=== PATIENT | female | born 1985 ===

== ENCOUNTER 2017-03-20 20:29 | Observation (INO) | payer MEDICAID ==
[2017-03-20 20:38] VITALS: RESP 16; TEMP 98.6; O2SAT 100
--- NOTE | 2017-03-20 21:35 | ED PDOC ---
HPI: Abdomen Time Seen by Provider: 03/20/17 21:34 Chief Complaint (Nursing): Abdominal Pain Chief Complaint (Provider): rlq abd pain History Per: Patient (31 y/o female here with right lower quadrant pain that began suddenly last night. Notes nausea. Denies any vomiting/fevers. Ate soup today. Took motrin without relief. Has h/o ovarian cysts.) Past Medical History Reviewed: Historical Data, Nursing Documentation, Vital Signs Vital Signs: Last Vital Signs Temp 98.6 F 03/20/17 20:36 Pulse 78 03/20/17 20:36 Resp 16 03/20/17 20:36 BP 101/72 03/20/17 20:36 Pulse Ox 100 03/21/17 03:57 - Family History Family History: States: No Known Family Hx - Home Medications Home Medications: Ambulatory Orders Medication Instructions Recorded Naproxen [Naprosyn Tab] 375 mg PO Q8 PRN #21 tab 03/21/17 - Allergies Allergies/Adverse Reactions: Allergies Allergy/AdvReac Type Severity Reaction Status Date / Time No Known Allergies Allergy Verified 03/20/17 20:36 Review of Systems ROS Statement: Except As Marked, All Systems Reviewed And Found Negative Gastrointestinal: Positive for: Nausea, Abdominal Pain Physical Exam - Reviewed Nursing Documentation Reviewed: Yes Vital Signs Reviewed: Yes - Physical Exam Appears: Positive for: Well, Non-toxic, No Acute Distress Head Exam: Positive for: ATRAUMATIC, NORMAL INSPECTION, NORMOCEPHALIC Skin: Positive for: Normal Color, Warm, DRY Eye Exam: Positive for: EOMI, Normal appearance, PERRL ENT: Positive for: Normal ENT Inspection Neck: Positive for: Normal, Painless ROM Cardiovascular/Chest: Positive for: Regular Rate, Rhythm Respiratory: Positive for: CNT, Normal Breath Sounds Gastrointestinal/Abdominal: Positive for: Normal Exam, Bowel Sounds, Soft, Tenderness (rlq tenderness) Back: Positive for: Normal Inspection Extremity: Positive for: Normal ROM Neurologic/Psych: Positive for: Alert, Oriented - Laboratory Results Result Diagrams: 03/20/17 21:49 03/20/17 22:30 - ECG O2 Sat by Pulse Oximetry: 100 ED OBSERVATION Date of observation admission: 03/20/17 Time of observation admission: 21:50 - Observation admission statement Patient is being placed in observation because:: EVALUATION OF ABDOMINAL PAIN - Goals of Observation Goals of observation are:: MANAGE PAIN/EVALUATE CAUSE OF ABDOMINAL PAIN AND START TREATMENT - Progress Note Progress Note: 03/21/17 02:40 PATIENT HAD US PELVIC: RIGHT OVARIAN CYST APPROX 4CM WITH FLOW NOTED PATIENT HAS MODERATE PAIN IN RIGHT LOWER QUADRANT THAT IS NEW, WILL CT ABDOMEN/PELVIS TO EVALUATE FOR APPENDICITIS. CT abd/pelvis: right ovarian cyst 03/21/17 03:56 Disposition - Clinical Impression Clinical Impression: Abdominal pain in female, Ovarian cyst - Patient ED Disposition Is Patient to be Admitted: No - Disposition Disposition: Routine/Home Disposition Time: 03:57 Condition: FAIR
[2017-03-20 22:46] LABS: ALB/GLOB RATIO 1.7 (1.0-2.1); ALKALINE PHOSPHATASE 65 U/L (38-126); ALT/SGPT 28 U/L (9-52); AST/SGOT 28 U/L (14-36); BILIRUBIN,TOTAL 0.7 mg/dl (0.2-1.3); BLOOD UREA NITROGEN 16 mg/dl (7-17); CALCIUM 9.3 mg/dL (8.4-10.2); CARBON DIOXIDE 22 mmol/L (22-30); CHLORIDE 105 mmol/L (98-107); GFR AFRICAN-AMERICAN > 60; GLUCOSE,RANDOM 87 mg/dL (65-105); SODIUM 139 mmol/l (132-148); TOTAL PROTEIN 7.5 G/DL (6.3-8.2)
[2017-03-20 22:48] LABS: POTASSIUM 4.9 MMOL/L (3.6-5.0)
--- NOTE | 2017-03-20 23:13 | US ---
EXAM: US Pelvis, Transvaginal CLINICAL HISTORY: 31 years old, female; Pain; Pelvic pain; Additional info: Evaluate for ovarian cyst TECHNIQUE: Real-time transvaginal pelvic ultrasound (complete) with image documentation. Transvaginal imaging was used for better evaluation of the endometrium and adnexa. COMPARISON: No relevant prior studies available. FINDINGS: Uterus/cervix: Uterus measures 7.1 x 3.3 x 5.0 cm in size. Retroverted uterus. No myometrial mass. Endometrium: 0.6 cm in thickness. Right ovary: 4.2 x 2.4 x 4.2 cm in size. 2.9 x 1.9 x 3.8 cm anechoic lesion. Normal flow. Left ovary: 2.7 x 1.2 x 2.1 cm in size. No mass. Normal flow. Free fluid: No significant free fluid. Bladder: Empty bladder which cannot be evaluated with this probe. IMPRESSION: 1. RIGHT ovarian cyst.
[2017-03-20] MEDS ORDERED: Sodium Chloride 0.9% 1,000 ML IV STA (23:22)
[2017-03-20 23:39] LABS: BASO % 0.3 % (0.0-2.0); EOS # 0.1 K/uL (0.0-0.7); EOS % 1.2 % (0.0-4.0); HEMATOCRIT 33.1 % (34.0-47.0); LYMPH # 1.4 K/uL (1.0-4.3); LYMPH % 18.6 % (20.0-40.0); MEAN CORPUSCULAR HEMOGLOBIN 30.6 pg (27.0-31.0); MEAN CORPUSCULAR HGB CONC 33.3 g/dL (33.0-37.0); MONO # 0.5 K/uL (0.0-0.8); MONO % 6.6 % (0.0-10.0); NEUT # 5.5 K/uL (1.8-7.0); NEUT % 73.3 % (50.0-75.0); RED CELL DISTRIBUTION WIDTH 12.2 % (11.5-14.5); WHITE BLOOD COUNT 7.5 K/uL (4.8-10.8)
[2017-03-20] MEDS ORDERED: Iohexol 240 (50 ml) PO ONE (23:54)
[2017-03-21] MEDS ORDERED: Iohexol 300 100 ML IJ ONE (02:05)
[2017-03-21] MEDS ORDERED: Sodium Chloride 0.9% 50 ML IV ONE (02:06)
[2017-03-21 04:12] VITALS: BP 94/47; PULSE 70
--- NOTE | 2017-03-21 10:20 | CT ---
PROCEDURE: CT Abdomen and Pelvis with contrast HISTORY: abd pain COMPARISON: None. TECHNIQUE: Contrast dose: 95 cc of Omnipaque 300. Axial and reformatted coronal and sagittal CT images of the abdomen and pelvis were obtained after IV and oral contrast administration. Radiation dose: Total exam DLP = 370.24 mGy-cm. This CT exam was performed using one or more of the following dose reduction techniques: Automated exposure control, adjustment of the mA and/or kV according to patient size, and/or use of iterative reconstruction technique. FINDINGS: LOWER THORAX: Unremarkable. LIVER: Unremarkable. No gross lesion or ductal dilatation. GALLBLADDER AND BILE DUCTS: Unremarkable. PANCREAS: Unremarkable. No gross lesion or ductal dilatation. SPLEEN: Unremarkable. ADRENALS: Unremarkable. No mass. KIDNEYS AND URETERS: Unremarkable. No hydronephrosis. No solid mass. VASCULATURE: Unremarkable. No aortic aneurysm. BOWEL: Unremarkable. No obstruction. No gross mural thickening. APPENDIX: Normal appendix. PERITONEUM: Unremarkable. No free fluid. No free air. LYMPH NODES: Unremarkable. No enlarged lymph nodes. BLADDER: Unremarkable. REPRODUCTIVE: There is 4.1 x 3.5 centimeters cystic lesion at the right adnexa. BONES: No acute fracture. OTHER FINDINGS: None. IMPRESSION: No evidence of appendicitis. 4.1 x 3.5 centimeter cystic lesion at the right adnexa. These findings corresponding to the previous ultrasound of the pelvis findings dated 03/20/2017.
== END 2017-03-21 03:54 | disposition home or self-care (01) ==
LOC: H.ER 20:29 → H.EROBSV 21:50
PROVIDERS: ADMIT Emergency Medicine; ATTEND Emergency Medicine
DX: N83.209 Unspecified ovarian cyst, unspecified side (principal); R10.31 Right lower quadrant pain
CPT/HCPCS: 74177; 76830; 80053; 81025; 85025; 87491; 87591; 96360; 96361; 99282; G0378; J7040; Q9966; Q9967

== ENCOUNTER 2018-05-22 22:33 | Emergency (ER) | payer MEDICAID ==
[2018-05-22 22:48] VITALS: TEMP 98.3; O2SAT 100
[2018-05-22] MEDS ORDERED: Sodium Chloride 0.9% 1,000 ML IV STA (23:20)
[2018-05-22 23:23] LABS: BASO % 0.6 % (0.0-2.0); EOS # 0.2 K/uL (0.0-0.7); EOS % 2.7 % (0.0-4.0); HEMOGLOBIN 11.9 g/dL (12.0-16.0); LYMPH # 1.9 K/uL (1.0-4.3); LYMPH % 27.9 % (20.0-40.0); MEAN CORPUSCULAR HEMOGLOBIN 30.8 pg (27.0-31.0); MEAN CORPUSCULAR HGB CONC 33.9 g/dL (33.0-37.0); MEAN PLATELET VOLUME 10.6 fl (7.2-11.7); MONO # 0.6 K/uL (0.0-0.8); MONO % 9.1 % (0.0-10.0); NEUT # 4.1 K/uL (1.8-7.0); NEUT % 59.7 % (50.0-75.0); RBC 3.87 Mil/uL (3.80-5.20); WHITE BLOOD COUNT 6.8 K/uL (4.8-10.8)
[2018-05-22 23:32] LABS: ALB/GLOB RATIO 1.4 (1.0-2.1); ALBUMIN 4.4 g/dL (3.5-5.0); ALT/SGPT 25 U/L (9-52); AST/SGOT 21 U/L (14-36); BLOOD UREA NITROGEN 21 mg/dl (7-17); CALCIUM 9.2 mg/dL (8.4-10.2); GFR NON-AFRICAN AMERICAN > 60
[2018-05-23 01:08] LABS: SQUAMOUS EPITHIAL 11 /hpf (0-5); URINE BILIRUBIN NEGATIVE (NEGATIVE); URINE BLOOD NEGATIVE (NEGATIVE); URINE CLARITY SLIGHTY-CLOUDY (Clear); URINE COLOR YELLOW (YELLOW); URINE GLUCOSE (UA) NEG (Normal); URINE LEUKOCYTE ESTERASE MOD Leu/uL (Negative); URINE PROTEIN NEGATIVE (NEGATIVE); URINE UROBILINOGEN 0.2-1.0 mg/dL (0.2-1.0)
--- NOTE | 2018-05-23 01:37 | ED PDOC ---
HPI: Abdomen Time Seen by Provider: 05/22/18 22:42 Chief Complaint (Nursing): Abdominal Pain Chief Complaint (Provider): Lower abdominal pain, vomiting x 1 month History Per: Patient History/Exam Limitations: no limitations Onset/Duration Of Symptoms: Days Outside of [place] travel?: No Current Symptoms Are (Timing): Still Present Additional Complaint(s): 32 yo female with no medical problems presents for evaluation of lower abdominal pain and vomiting. Pt states she has been vomiting intermittently x 1 month. PT states the last 4 days has been worse. Pt denies dysuria, pain pain, fever/chills. No vaginal pain, no vaginal discharge Abnormal Vaginal Bleeding: No Past Medical History Reviewed: Historical Data, Nursing Documentation, Vital Signs Vital Signs: Last Vital Signs Temp 98.3 F 05/22/18 22:45 Pulse 76 05/22/18 22:45 Resp 18 05/22/18 22:45 BP 103/65 05/22/18 22:45 Pulse Ox 100 05/22/18 22:45 - Medical History PMH: No Chronic Diseases - Surgical History Surgical History: No Surg Hx - Family History Family History: States: No Known Family Hx - Living Arrangements Living Arrangements: With Family - Home Medications Home Medications: Ambulatory Orders Medication Instructions Recorded Naproxen [Naprosyn Tab] 375 mg PO Q8 PRN #21 tab 03/21/17 Nitrofurantoin Macrocrystals 100 mg PO BID #10 cap 05/23/18 [Macrobid] Ondansetron ODT [Zofran ODT] 4 mg PO QID #20 odt 05/23/18 - Allergies Allergies/Adverse Reactions: Allergies Allergy/AdvReac Type Severity Reaction Status Date / Time No Known Allergies Allergy Verified 03/20/17 20:36 Review of Systems ROS Statement: Except As Marked, All Systems Reviewed And Found Negative Constitutional: Negative for: Fever, Chills, Sweats, Weakness, Malaise Gastrointestinal: Positive for: Nausea, Vomiting. Negative for: Abdominal Pain, Diarrhea, Rectal Pain Genitourinary Female: Positive for: Pelvic Pain. Negative for: Frequency, Incontinence, Hematuria, Vaginal Discharge, Vaginal Bleeding Musculoskeletal: Negative for: Neck Pain Physical Exam - Reviewed Nursing Documentation Reviewed: Yes Vital Signs Reviewed: Yes - Physical Exam Appears: Positive for: Well, Non-toxic, No Acute Distress Head Exam: Positive for: ATRAUMATIC, NORMAL INSPECTION, NORMOCEPHALIC Skin: Positive for: Normal Color, Warm, DRY Eye Exam: Positive for: Normal appearance ENT: Positive for: Normal ENT Inspection Neck: Positive for: Normal, Painless ROM Cardiovascular/Chest: Positive for: Regular Rate, Rhythm Respiratory: Positive for: Normal Breath Sounds. Negative for: Accessory Muscle Use, Respiratory Distress Gastrointestinal/Abdominal: Positive for: Normal Exam, Soft. Negative for: Tenderness, Distended, Guarding, Rebound Back: Positive for: Normal Inspection Extremity: Positive for: Normal ROM Neurologic/Psych: Positive for: Alert, Oriented - Laboratory Results Result Diagrams: 05/22/18 23:11 05/22/18 23:11 - ECG O2 Sat by Pulse Oximetry: 100 Medical Decision Making Medical Decision Making: Labs normal. Urine (+) leuks Disposition - Clinical Impression Clinical Impression: UTI (urinary tract infection) - Patient ED Disposition Is Patient to be Admitted: No Counseled Patient/Family Regarding: Diagnosis, Need For Followup, Rx Given - Disposition Disposition: Routine/Home Disposition Time: 02:47 Condition: GOOD Prescriptions: Nitrofurantoin Macrocrystals [Macrobid] 100 mg PO BID #10 cap Ondansetron ODT [Zofran ODT] 4 mg PO QID #20 odt Instructions: Urinary Tract Infection, Adult (DC) Forms: [facility] (Tajik) Print Language: HUNGARIAN
[2018-05-23] MEDS ORDERED: cefTRIAXone (Rocephin) 1 gm Inj ONE (01:40)
[2018-05-23 02:58] VITALS: BP 98/60; PULSE 66; RESP 22
== END 2018-05-23 03:03 | disposition home or self-care (01) ==
LOC: H.ER 22:33
DX: N39.0 Urinary tract infection, site not specified (principal)
CPT/HCPCS: 80053; 81003; 81025; 83690; 85025; 87086; 96360; 96365; 99284; J0696; J2405; J7030